=== PATIENT | male | born 1980 | race African-American/Black ===

== ENCOUNTER 2020-01-01 07:22 | Emergency (ER) | payer OTHER ==
[~2020-01-01] VITALS: Ht 167.6 cm; Wt 79.4 kg
[2020-01-01] MEDS ORDERED: NORFLEX100 MG PO (08:15)
[2020-01-01] MEDS ORDERED: NAPROSYN500 MG PO (08:15)
[2020-01-01 09:06] VITALS: BP 154/94
== END 2020-01-01 09:06 | disposition home or self-care (01) ==
LOC: ER 07:22
DX: S20.211A Contusion of right front wall of thorax, initial encounter (principal); S16.1XXA Strain of muscle, fascia and tendon at neck level, initial encounter; S13.4XXA Sprain of ligaments of cervical spine, initial encounter; V49.9XXA Car occupant (driver) (passenger) injured in unspecified traffic accident, initial encounter; Y93.89 Activity, other specified; Y92.89 Other specified places as the place of occurrence of the external cause; Y99.8 Other external cause status